=== PATIENT | male | born 1940 | race Caucasian/White ===

== ENCOUNTER → 2017-12-30 | Outpatient (CLI) | payer OTHER ==
[~2017-12-30] VITALS: Ht 177.8 cm; Wt 95.4 kg
[~2017-12-30] MED LIST: AZIT250T9 PO; CETI-101 PO; FLEC100T3 PO; FLUT1BLS3 IH; GABA-531 PO; MONT10TA24 PO; MULT1TAB70 PO; OMEP20TA25 PO; POTA-79 PO; TAMS0.4C32 PO; TYL3 PO; diltiazem PO
[2017-12-30 15:00] VITALS: BP_SYST 169; BP_SYST 175; BP_DIAS 104; BP_DIAS 94
[2017-12-30 15:31] LABS: BASOPHILS % (AUTO) 0.9 % (0.0-5.0); EOSINOPHILS % (AUTO) 2.4 % (0.0-8.0); HEMATOCRIT 39.9 % (42-54); LYMPHOCYTES % (AUTO) 43.1 % (21.0-51.0); MEAN CORPUSCULAR HEMOGLOBIN 34.2 pg (27.0-33.0); MEAN CORPUSCULAR HGB CONC 34.3 g/dL (32.0-36.0); MEAN CORPUSCULAR VOLUME 99.7 fL (79-99); MONOCYTES % (AUTO) 10.1 % (3.0-13.0); NEUTROPHILS % (AUTO) 43.5 % (40.0-77.0); NUCLEATED RED BLOOD CELLS 0.1 % (0.0-0.19); PLATELET COUNT (AUTO) 200 K/uL (130-400); RED CELL DISTRIBUTION WIDTH 12.8 % (11.0-15.5); WHITE BLOOD COUNT (AUTO) 5.7 K/uL (4.8-10.8)
[2017-12-30 15:36] LABS: APPEARANCE,URINE Clear (CLEAR); BILIRUBIN,URINE Negative (NEGATIVE); COLOR,URINE Yellow (YELLOW); GLUCOSE, URINE (UA) Negative (NEGATIVE); KETONES,URINE Negative (NEGATIVE); LEUKOCYTE ESTERASE ,URINE Negative (NEGATIVE); NITRATE,URINE Negative (NEGATIVE); OCCULT BLOOD,URINE Negative (NEGATIVE); PH,URINE 5.5 (5.0-8.0); PROTEIN,URINE Negative (NEGATIVE); UROBILINOGEN,URINE 0.2 mg/dL (0.2-1.0)
[2017-12-30 15:37] LABS: CREATININE 1.5 mg/dL (0.5-1.5)
== END | disposition home or self-care (01) ==
LOC: DAH 10:00 → EDSTATUS 12:30
PROVIDERS: ATTEND Surgery
DX: I48.91 Unspecified atrial fibrillation (principal); R94.31 Abnormal electrocardiogram [ECG] [EKG]; K40.90 Unilateral inguinal hernia, without obstruction or gangrene, not specified as recurrent
CPT/HCPCS: 36415; 80048; 81003; 85025; 93005

== ENCOUNTER → 2018-01-08 | Outpatient (CLI) | payer OTHER ==
[~2018-01-08] VITALS: Ht 177.8 cm; Wt 96.6 kg
[~2018-01-08] MED LIST changes: +REGADENOSON 0.4 MG/5 ML PF SYG IVP SCH
== END | disposition home or self-care (01) ==
LOC: RAH 08:43
PROVIDERS: ATTEND Internal Medicine
DX: I48.91 Unspecified atrial fibrillation (principal); I10 Essential (primary) hypertension; R06.00 Dyspnea, unspecified
CPT/HCPCS: 78452; 93017; 96374; A9500 ×2; J2785

== ENCOUNTER 2018-07-22 08:40 | Day surgery (SDC) | payer OTHER ==
[~2018-07-22] VITALS: Ht 177.8 cm; Wt 95.3 kg
[~2018-07-22 08:40] MED LIST changes: +CERTIRIZINE PO; -CETI-101 PO; +CLON0.1T PO; +DILT90TA2 PO; +FAMO-136 PO; +FURO20TA4 PO; -MONT10TA24 PO; -OMEP20TA25 PO; -REGADENOSON 0.4 MG/5 ML PF SYG IVP SCH; +SODIUM CHLORIDE 0.9% 1000ML 1,000 ML IV ONE; -diltiazem PO
[2018-07-22 11:48] VITALS: BP 165/77
[2018-07-22] MEDS ORDERED: PROPOFOL 10 MG/ML 20ML VIAL IV ONE ×2 (12:02)
[2018-07-22] MEDS ORDERED: GLYCOPYRROLATE 0.2 MG/ML 5 ML VIAL ONE (12:02)
[2018-07-22] MEDS ORDERED: LIDOCAINE HCL 1% 20 ML VIAL ONE (12:02)
[2018-07-22] MEDS ORDERED: ESOM40CA54 PO (12:13)
[2018-07-22] MEDS ORDERED: MONT10TA24 PO (12:13)
[2018-07-22] MEDS ORDERED: FLUT1BLS IH (12:13)
[2018-07-22] MEDS ORDERED: APIX5TAB PO (12:13)
[2018-07-22 12:17] VITALS: BP 147/79
[2018-07-22 12:23] VITALS: BP 153/103
[2018-07-22 12:29] VITALS: BP 146/98
== END 2018-07-22 12:55 | disposition home or self-care (01) ==
LOC: DAH 08:40 → ENDO 08:40
PROVIDERS: ATTEND Internal Medicine
DX: K31.89 Other diseases of stomach and duodenum (principal); K22.8 Other specified diseases of esophagus; I10 Essential (primary) hypertension; K21.9 Gastro-esophageal reflux disease without esophagitis; G25.81 Restless legs syndrome; J21.9 Acute bronchiolitis, unspecified; Z98.890 Other specified postprocedural states; Z79.899 Other long term (current) drug therapy; Z68.30 Body mass index [BMI] 30.0-30.9, adult; Z86.010 Personal history of colon polyps; I48.2 Chronic atrial fibrillation; R05 Cough; Z88.8 Allergy status to other drugs, medicaments and biological substances
CPT/HCPCS: 43239; 88305; 88312; 93005; A4606; J2704 ×2; J3490; J7030

== ENCOUNTER → 2018-09-30 | Outpatient (CLI) | payer OTHER ==
[~2018-09-30] MED LIST changes: +APIX5TAB PO; +ESOM40CA54 PO; +FLUT1BLS IH; +MONT10TA24 PO; -MULT1TAB70 PO; -SODIUM CHLORIDE 0.9% 1000ML 1,000 ML IV ONE; -TYL3 PO
== END | disposition home or self-care (01) ==
LOC: RAH 13:46
PROVIDERS: ATTEND Internal Medicine Cardiovascular Disease
DX: Z13.6 Encounter for screening for cardiovascular disorders (principal)
CPT/HCPCS: 75571

== ENCOUNTER → 2018-10-06 | Outpatient (CLI) | payer OTHER | END | disposition home or self-care (01) | LOC: SHCH 09:37 | PROVIDERS: ATTEND Internal Medicine Cardiovascular Disease | DX: I07.1 Rheumatic tricuspid insufficiency (principal); R06.00 Dyspnea, unspecified | CPT/HCPCS: 93306 ==

== ENCOUNTER → 2018-10-12 | Outpatient (CLI) | payer OTHER ==
[~2018-10-12] VITALS: Ht 177.8 cm; Wt 96.9 kg
[~2018-10-12] MED LIST changes: +ACET-66 PO; +CETI10CA5 PO; +OMEP20TA25 PO; +PRED10TA3 PO
[2018-10-12 09:40] VITALS: BP 121/62
[2018-10-12 09:54] LABS: BASOPHILS % (AUTO) 1.3 % (0.0-5.0); EOSINOPHILS % (AUTO) 3.5 % (0.0-8.0); HEMATOCRIT 37.4 % (42-54); LYMPHOCYTES % (AUTO) 36.1 % (21.0-51.0); MEAN CORPUSCULAR HGB CONC 34.1 g/dL (32.0-36.0); MEAN CORPUSCULAR VOLUME 102.6 fL (79-99); MONOCYTES % (AUTO) 11.7 % (3.0-13.0); NEUTROPHILS % (AUTO) 47.4 % (40.0-77.0); PLATELET COUNT (AUTO) 204 K/uL (130-400); RED BLOOD CELL COUNT(AUTO) 3.64 MIL/uL (4.50-6.20); RED CELL DISTRIBUTION WIDTH 12.3 % (11.0-15.5); WHITE BLOOD COUNT (AUTO) 5.5 K/uL (4.8-10.8)
[2018-10-12 10:06] LABS: CREATININE 1.6 mg/dL (0.5-1.5); INR 1.03 (0.85-1.15); PARTIAL THROMBOPLASTIN TIME 32.4 SEC (26.3-35.5); POTASSIUM 4.2 mmol/L (3.5-5.1); PROTHROMBIN TIME 10.8 SEC (9.6-11.6)
== END ==
LOC: DAH 10:00 → EDSTATUS 10-14 09:00
PROVIDERS: ATTEND Internal Medicine Cardiovascular Disease
DX: Z01.818 Encounter for other preprocedural examination (principal); I49.5 Sick sinus syndrome; Z79.01 Long term (current) use of anticoagulants
CPT/HCPCS: 36415; 80048; 85025; 85610; 85730; 93005

== ENCOUNTER 2018-10-21 06:50 | Observation (INO) | payer OTHER ==
[2018-10-19 10:38] VITALS: BP 107/70
[2018-10-19 10:42] LABS: EOSINOPHILS % (AUTO) 2.2 % (0.0-8.0); HEMATOCRIT 42.5 % (42-54); LYMPHOCYTES % (AUTO) 38.4 % (21.0-51.0); MEAN CORPUSCULAR HEMOGLOBIN 34.7 pg (27.0-33.0); MEAN CORPUSCULAR HGB CONC 34.1 g/dL (32.0-36.0); MEAN CORPUSCULAR VOLUME 101.5 fL (79-99); MONOCYTES % (AUTO) 11.7 % (3.0-13.0); NEUTROPHILS % (AUTO) 46.7 % (40.0-77.0); NUCLEATED RED BLOOD CELLS 0.2 % (0.0-0.19); PLATELET COUNT (AUTO) 214 K/uL (130-400); RED BLOOD CELL COUNT(AUTO) 4.19 MIL/uL (4.50-6.20); RED CELL DISTRIBUTION WIDTH 12.1 % (11.0-15.5); WHITE BLOOD COUNT (AUTO) 6.8 K/uL (4.8-10.8)
[2018-10-19 10:51] LABS: CREATININE 1.6 mg/dL (0.5-1.5); POTASSIUM 4.5 mmol/L (3.5-5.1)
[2018-10-19 10:53] LABS: INR 1.04 (0.85-1.15); PARTIAL THROMBOPLASTIN TIME 33.1 SEC (26.3-35.5); PROTHROMBIN TIME 10.9 SEC (9.6-11.6)
--- NOTE | 2018-10-20 14:35 | NUR ---
BMP faxed bmp (creatinine 1.6) & cbc to [facility] to proceed with procedure per Dr Garcia/Yeny
[~2018-10-21] VITALS: Ht 177.8 cm; Wt 95.5 kg
[2018-10-21] VITALS (10 sets, daily range): BP systolic 122–162; BP diastolic 65–94
[~2018-10-21 06:50] MED LIST changes: -CERTIRIZINE PO; -FLUT1BLS IH; -FLUT1BLS3 IH; +NASAL SPRAY NASAL
--- NOTE | 2018-10-21 07:15 | NUR ---
RECEIVED PATIENT IN GOOD SPIRITS,ACCOMPANIED BY SPOUSE ,NO COMPLAINTS OF DISCOMFORT ,ORIENTED TO ROOM AND MADE COMFORTABLE,,CALL CALDWELL IN REACH,HAS RT LOWER BRACE AT BEDSIDE ,STATES DOES NOT USE UNLESS HE REMEMBERS ,,STATES ABLE TO WALK WITH NO PROBLEM,HAS SCREWS TO RT ANKLE ,AND METAL PLATE ,STATES APPROXIMATELY 28 YEARS AGO
[2018-10-21] MEDS ORDERED: SODIUM CHLORIDE 0.9% 1000ML 1,000 ML IV SCH (08:00)
[2018-10-21] MEDS ORDERED: BUPIVACAINE/PF 0.25% 30ML VIAL IJ ONE (08:50)
[2018-10-21] MEDS ORDERED: CEFAZOLIN SODIUM 1 GM VIAL ONE (08:50)
[2018-10-21] MEDS ORDERED: LIDOCAINE HCL 1% MDV 50ML VIAL ONE (08:50)
--- NOTE | 2018-10-21 09:05 | NUR ---
TO CLINICAL MENTAL HEALTH COUNSELOR VIA STRETCHER ACCOMPANIED BY FRED LYMAN
[2018-10-21] MEDS ORDERED: MEPERIDINE-PF 25 MG/ML SYG ONE (09:18)
[2018-10-21] MEDS ORDERED: MIDAZOLAM HCL 1 MG/ML 2ML VIAL ONE (09:18)
[2018-10-21] MEDS ORDERED: PREDNISONE 10 MG TABLET PO PRN (10:30)
[2018-10-21] MEDS ORDERED: ACETAMINOPHEN 325 MG TAB PO PRN (10:30)
[2018-10-21] MEDS ORDERED: ACETAMINOPHEN-CODEINE 300/30MG TAB PO PRN ×2 (10:30)
[2018-10-21] MEDS ORDERED: AZITHROMYCIN 250 MG TABLET PO SCH (10:30)
--- NOTE | 2018-10-21 10:58 | NUR ---
ARRIVAL TO ROOM 227 PT IS AAOX4 DENIES CP DENIES SOB DENIES NV NO COMPLAINTS LEFT UPPER CHEST DRSSING IS CLEAN DRY AND INTACT. LEFT ARM SLING IS IN PLACE. CALL LIGHT WITHIN REACH.
[2018-10-21] MEDS: METOPROLOL TARTRATE 25 MG TAB PO SCH ×2 (11:13→22:01)
[2018-10-21] MEDS: SODIUM CHLORIDE 45 ML SPRY NS SCH (11:38)
[2018-10-21] MEDS ORDERED: ACETAMINOPHEN EXTRA STRENGTH 500 MG TABLET PO PRN (11:45)
--- NOTE | 2018-10-21 17:40 | NUR ---
STATUS SITTING UPRIGHT IN BED, NO COMPLAINTS DENIES CP DENIES SOB DENIES NV. LEFT ARM SLING IS IN PLACE.
[2018-10-21] MEDS ORDERED: TAMSULOSIN HCL 0.4 MG CAP.ER.24H PO SCH (21:00)
[2018-10-21] MEDS ORDERED: NON-FORMULARY MEDICATION 1 EACH (Omeprazole 20 MG) PO SCH (21:00)
[2018-10-21] MEDS ORDERED: MONTELUKAST SODIUM 10 MG TAB PO SCH (21:00)
[2018-10-21] MEDS ORDERED: FLECAINIDE ACETATE 100 MG TABLET PO SCH (21:00)
[2018-10-21] MEDS ORDERED: POTASSIUM CHLORIDE 20 MEQ ERTAB PO SCH (21:00)
[2018-10-21] MEDS: APIXABAN 5 MG TABLET PO SCH (22:00)
[2018-10-21] MEDS: FAMOTIDINE 20MG TAB 20 MG TAB PO SCH (22:00)
[2018-10-21] MEDS: GABAPENTIN 300 MG CAPSULE PO SCH (22:01)
[2018-10-21] MEDS: CLONIDINE HCL 0.1 MG TABLET PO SCH (22:02)
[2018-10-21] MEDS: DILTIAZEM HCL 60 MG TABLET PO SCH (22:03)
[2018-10-22 03:00] VITALS: BP 134/82
[2018-10-22] MEDS: SODIUM CHLORIDE 45 ML SPRY NS SCH (07:21)
[2018-10-22] MEDS: GABAPENTIN 300 MG CAPSULE PO SCH (07:22)
[2018-10-22] MEDS: METOPROLOL TARTRATE 25 MG TAB PO SCH (07:22)
[2018-10-22] MEDS: APIXABAN 5 MG TABLET PO SCH (07:23)
[2018-10-22] MEDS: DILTIAZEM HCL 60 MG TABLET PO SCH (07:23)
[2018-10-22] MEDS: CLONIDINE HCL 0.1 MG TABLET PO SCH (07:23)
[2018-10-22] MEDS: FAMOTIDINE 20MG TAB 20 MG TAB PO SCH (07:23)
--- NOTE | 2018-10-22 08:00 | NUR ---
STATUS AAOX4. SITTING UPRIGHT IN BED, LEFT UPPER CHEST DRESSING INTACT. NO COMPLAINTS DENIES CP DENIES SOB DENIES NV. CALL LIGHT WITHIN REACH.
[2018-10-22 08:19] VITALS: BP 145/90
[2018-10-22] MEDS ORDERED: CETIRIZINE HCL 5 MG TABLET PO SCH (09:00)
[2018-10-22] MEDS ORDERED: NON-FORMULARY MEDICATION 1 EACH (Esomeprazole Magnesium 40 MG) PO SCH (09:00)
--- NOTE | 2018-10-22 09:00 | NUR ---
ROUNDS DR LUKE SALAZAR ROUNDED OK TO DC HOME
--- NOTE | 2018-10-22 10:16 | NUR ---
DC TO HOME PT AND FAMILY VERBALIZE DC INSTRUCTIONS UNDERSTANDING, AGREE TO FOLLOW UP WITH MDs ORDERED. AGREE TO TAKE MEDS ORDERED. ALL QUESTIONS ANSWERED, PIV REMOVED CATH TIP INTACT, TELE PACK REMOVED. DOWN VIA WC WITH FAMILY AND NURSE AIDE TO VEHICLE.
[2018-10-23] MEDS ORDERED: FUROSEMIDE 20 MG TABLET PO SCH (09:00)
== END 2018-10-22 10:24 | disposition home or self-care (01) ==
LOC: DAH 06:50 → DAHIP 06:51 → DAH 06:51 → 2DH 11:21
PROVIDERS: ADMIT Internal Medicine; ATTEND Internal Medicine
DX: I48.0 Paroxysmal atrial fibrillation (principal); K21.9 Gastro-esophageal reflux disease without esophagitis; N40.1 Benign prostatic hyperplasia with lower urinary tract symptoms; N13.8 Other obstructive and reflux uropathy; G25.81 Restless legs syndrome; I11.0 Hypertensive heart disease with heart failure; I50.32 Chronic diastolic (congestive) heart failure; D68.69 Other thrombophilia; E78.5 Hyperlipidemia, unspecified; E88.81 Metabolic syndrome and other insulin resistance; G62.9 Polyneuropathy, unspecified; G89.29 Other chronic pain; G95.9 Disease of spinal cord, unspecified; I42.0 Dilated cardiomyopathy; J44.9 Chronic obstructive pulmonary disease, unspecified; M19.90 Unspecified osteoarthritis, unspecified site; M51.9 Unspecified thoracic, thoracolumbar and lumbosacral intervertebral disc disorder; Z79.01 Long term (current) use of anticoagulants; Z87.442 Personal history of urinary calculi; Z95.0 Presence of cardiac pacemaker; Z82.49 Family history of ischemic heart disease and other diseases of the circulatory system
CPT/HCPCS: 33208; 36415; 71045; 80048; 85025; 85610; 85730; A4606; C1785; C1898 ×2; G0378 ×28; J0690; J2175; J2250; J3490 ×2; J7030; 99156; 99157

== ENCOUNTER → 2019-05-31 | Outpatient (CLI) | payer OTHER ==
[~2019-05-31] VITALS: Ht 177.8 cm; Wt 90.7 kg
[2019-05-31] MEDS: REGADENOSON 0.4 MG/5 ML PF SYG IVP SCH (13:34)
== END | disposition home or self-care (01) ==
LOC: SHCH 08:46
PROVIDERS: ATTEND Internal Medicine Cardiovascular Disease
DX: I48.0 Paroxysmal atrial fibrillation (principal)
CPT/HCPCS: 78452; 93017; 96374; A9500 ×2; J2785

== ENCOUNTER → 2021-05-22 | Outpatient (CLI) | payer OTHER ==
[~2021-05-22] MED LIST changes: -MONT10TA24 PO; +MONT10TA32 PO
== END | disposition home or self-care (01) ==
LOC: RAH 07:43
PROVIDERS: ATTEND Internal Medicine
DX: N20.0 Calculus of kidney (principal); K57.30 Diverticulosis of large intestine without perforation or abscess without bleeding
CPT/HCPCS: 74176

== ENCOUNTER → 2022-01-04 | Outpatient (CLI) | payer OTHER ==
[~2022-01-04] MED LIST changes: +MONT-39 PO; -MONT10TA32 PO; +OMEP20TA20 PO; -OMEP20TA25 PO
== END | disposition home or self-care (01) ==
LOC: SHCH 10:08
PROVIDERS: ATTEND Internal Medicine Cardiovascular Disease
DX: I08.1 Rheumatic disorders of both mitral and tricuspid valves (principal)
CPT/HCPCS: 93306

== ENCOUNTER → 2022-01-07 | Outpatient (CLI) | payer OTHER ==
[2022-01-07] MEDS: REGADENOSON 0.4 MG/5 ML PF SYG IVP SCH (11:53)
== END | disposition home or self-care (01) ==
LOC: SHCH 07:48
PROVIDERS: ATTEND Internal Medicine Cardiovascular Disease
DX: I10 Essential (primary) hypertension (principal); R00.2 Palpitations; Z79.899 Other long term (current) drug therapy
CPT/HCPCS: 78452; 93017; 96374; A9500 ×2; J2785

== ENCOUNTER 2022-11-15 18:22 | Inpatient (IN) | payer OTHER ==
[~2022-11-15] VITALS: Ht 177.8 cm; Wt 88.5 kg
[~2022-11-15 18:22] MED LIST changes: +ACET-2743 PO; -ACET-66 PO; +ALBU2.5V2 IH; +ALBU90AE IH; -AZIT250T9 PO; -CETI10CA5 PO; +CETI10TA57 PO; -CLON0.1T PO; -DILT90TA2 PO; -FAMO-136 PO; +FAMO20TA8 PO; -FLEC100T3 PO; +FLUT1BLS12 IH; -FURO20TA4 PO; -GABA-531 PO; +GABA300T25 PO; +METO100T14 PO; -NASAL SPRAY NASAL; +NITR0.4T50 SL; -OMEP20TA20 PO; +POTA-202 PO; -POTA-79 PO; -PRED10TA3 PO; +ROSU5TAB12 PO; +TAMS-1 PO; -TAMS0.4C32 PO; +VERA240T95 PO
[2022-11-15 21:39] LABS: APPEARANCE,URINE CLOUDY (CLEAR); BILIRUBIN,URINE NEGATIVE (NEGATIVE); COLOR,URINE LIGHT-YELLOW (YELLOW); GLUCOSE, URINE (UA) NEGATIVE (NEGATIVE); KETONES,URINE NEGATIVE (NEGATIVE); LEUKOCYTE ESTERASE ,URINE 500 Leu/uL (NEGATIVE); NITRATE,URINE NEGATIVE (NEGATIVE); OCCULT BLOOD,URINE SMALL (NEGATIVE); PROTEIN,URINE 10 mg/dL (NEGATIVE); UROBILINOGEN,URINE 0.2 mg/dL (0.2-1.0)
[2022-11-15 21:45] LABS: BACTERIA,URINE FEW /HPF (None Seen); SQUAMOUS EPITHELIAL CELL,UR RARE /HPF (0-2); WBC,URINE 51-100 /HPF (0-1); YEAST,URINE BUDDING FEW /HPF (None Seen)
[2022-11-15 21:47] LABS: BASOPHILS % (AUTO) 0.5 % (0.0-5.0); EOSINOPHILS % (AUTO) 0.9 % (0.0-8.0); HEMATOCRIT 24.1 % (42-54); LYMPHOCYTES % (AUTO) 28.2 % (21.0-51.0); MEAN CORPUSCULAR HEMOGLOBIN 30.4 pg (27.0-33.0); MEAN CORPUSCULAR HGB CONC 32.4 g/dL (32.0-36.0); MEAN CORPUSCULAR VOLUME 93.8 fL (79-99); MONOCYTES % (AUTO) 12.7 % (3.0-13.0); NEUTROPHILS % (AUTO) 57.3 % (40.0-77.0); PLATELET COUNT (AUTO) 238 K/uL (130-400); RED BLOOD CELL COUNT(AUTO) 2.57 MIL/uL (4.50-6.20); RED CELL DISTRIBUTION WIDTH 15.9 % (11.0-15.5); WHITE BLOOD COUNT (AUTO) 8.1 K/uL (4.8-10.8)
[2022-11-15 21:54] LABS: CREATININE 1.4 mg/dL (0.5-1.5); POTASSIUM 3.3 mmol/L (3.5-5.1)
[2022-11-15 22:01] LABS: ALBUMIN 2.3 g/dL (3.5-5.0); TOTAL PROTEIN, SERUM 6.5 g/dL (6.0-8.3)
[2022-11-15 22:26] LABS: B-TYPE NATRIURETIC PEPTIDE 520 pg/mL (0-100)
[2022-11-15] MEDS ORDERED: CEFTRIAXONE 2GM VIAL IVP ONE (22:30)
[2022-11-15] MEDS ORDERED: ACET-2079 PO (22:43)
[2022-11-15] MEDS ORDERED: AMIO200T68 PO (22:43)
[2022-11-15] MEDS ORDERED: GABA300T25 PO (22:43)
[2022-11-15] MEDS ORDERED: CYAN10007 IJ (22:44)
[2022-11-15] MEDS ORDERED: FLEC100T3 PO (22:45)
[2022-11-15] MEDS ORDERED: ESCI10TA PO (22:46)
[2022-11-15] MEDS ORDERED: VERE240SR PO (22:52)
[2022-11-15] MEDS ORDERED: MAG/ALUM/SIMETH 30 ML UDCUP PO PRN (23:00)
[2022-11-15] MEDS ORDERED: ACETAMINOPHEN 325 MG TAB PO PRN ×2 (23:00)
[2022-11-15] MEDS ORDERED: LACTULOSE 20 GM/30 ML UDCUP PO PRN (23:00)
[2022-11-15] MEDS ORDERED: POTASSIUM CHLORIDE 20MEQ/100ML 100 ML IV PRN ×2 (23:00)
[2022-11-15] MEDS ORDERED: POTASSIUM BICARB/CIT AC 25 MEQ TABLET.EFF PO ONE (23:00)
[2022-11-15] MEDS: CEFTRIAXONE 1G VIAL IV SCH (23:00)
[2022-11-15] MEDS ORDERED: NITROGLYCERIN 0.4 MG SL TAB SL PRN (23:00)
[2022-11-15] MEDS ORDERED: POTASSIUM CHLORIDE 10% ELIXIR 20 MEQ/15 ML UDCUP PO PRN (23:00)
[2022-11-15] MEDS ORDERED: GUAIFENESIN-DM 200/20 MG 10 ML PO PRN (23:00)
[2022-11-15] MEDS ORDERED: ONDANSETRON 4MG INJ IV PRN (23:00)
[2022-11-15] MEDS ORDERED: MAGNESIUM 2GM PREMIX 50ML 50 ML IV PRN (23:00)
[2022-11-15] MEDS ORDERED: HYDRALAZINE 20MG/ML VIAL IV PRN (23:30)
[2022-11-15] MEDS: 0.9%NACL 1000ML 1,000 ML IV SCH (23:49)
[2022-11-15] MEDS: PANTOPRAZOLE 40 MG/VIAL IVP SCH (23:49)
[2022-11-16 01:30] VITALS: BP 164/84
[2022-11-16] MEDS: ACETAMINOPHEN WITH CODEINE 1 TAB TAB PO PRN ×2 (02:46→07:03)
[2022-11-16 04:00] VITALS: BP 136/86
[2022-11-16 05:30] LABS: HEMATOCRIT 24.1 % (42-54); MEAN CORPUSCULAR VOLUME 93.8 fL (79-99); RED BLOOD CELL COUNT(AUTO) 2.57 MIL/uL (4.50-6.20); RED CELL DISTRIBUTION WIDTH 16.1 % (11.0-15.5); WHITE BLOOD COUNT (AUTO) 8.4 K/uL (4.8-10.8)
[2022-11-16 06:13] LABS: CREATININE 1.3 mg/dL (0.5-1.5); MAGNESIUM 1.6 mg/dL (1.80-2.40); POTASSIUM 3.2 mmol/L (3.5-5.1)
[2022-11-16 07:15] VITALS: BP 144/81
[2022-11-16] MEDS: ADVAIR IH SCH ×2 (09:00→21:00)
[2022-11-16] MEDS ORDERED: KCL 20 MEQ ERTAB PO SCH (09:00)
[2022-11-16] MEDS ORDERED: FAMOTIDINE 20MG TAB PO SCH (09:00)
[2022-11-16] MEDS: ALBUTEROL 0.083% 2.5 MG/3 ML INH IH PRN (09:13)
[2022-11-16] MEDS: PANTOPRAZOLE 40 MG/VIAL IVP SCH (10:00)
[2022-11-16] MEDS: FLECAINIDE ACETATE 100 MG TABLET PO SCH (10:01)
[2022-11-16] MEDS: CETIRIZINE HCL 5 MG TABLET PO SCH (10:01)
[2022-11-16] MEDS: CITALOPRAM 20 MG TABLET PO SCH (10:01)
[2022-11-16] MEDS: AMIODARONE 200 MG TABLET PO SCH ×2 (10:01→20:50)
[2022-11-16] MEDS: VERAPAMIL HCL 240 MG SRTAB PO SCH (10:01)
[2022-11-16] MEDS: TAMSULOSIN HCL 0.4 MG CAP.ER.24H PO SCH (10:01)
[2022-11-16] MEDS: METOPROLOL TARTRATE 50 MG TAB PO SCH ×2 (10:01→20:50)
[2022-11-16] MEDS: KCL 20 MEQ ERTAB PO SCH ×2 (10:02→20:50)
[2022-11-16] MEDS: FOLIC ACID 1 MG TABLET PO SCH (10:03)
[2022-11-16] MEDS: FERROUS SULFATE 325 MG TABLET.DR PO SCH (10:03)
[2022-11-16 11:15] VITALS: BP 116/63
[2022-11-16] MEDS: KCL 20 MEQ ERTAB PO PRN (13:44)
[2022-11-16 15:15] VITALS: BP 123/59
[2022-11-16] MEDS ORDERED: VANCOMYCIN PROTOCOL PER PHARMACY IV SCH (15:30)
[2022-11-16] MEDS ORDERED: COMPOUND IV REFRIGERATED 1 EACH IVSOLN MISC PRN (16:00)
[2022-11-16] MEDS: MONTELUKAST SODIUM 10 MG TAB PO SCH (17:06)
[2022-11-16] MEDS: VANCOMYCIN 1.25 GM/250 ML BAG 250 ML IV SCH (17:20)
[2022-11-16 20:00] VITALS: BP 134/77
[2022-11-16] MEDS: GABAPENTIN 300 MG CAPSULE PO SCH (20:50)
[2022-11-16] MEDS: CEFTRIAXONE 1G VIAL IV SCH (23:53)
[2022-11-17] VITALS (7 sets, daily range): BP systolic 145–176; BP diastolic 65–102
[2022-11-17 06:03] LABS: HEMATOCRIT 24.5 % (42-54); MEAN CORPUSCULAR HEMOGLOBIN 29.9 pg (27.0-33.0); MEAN CORPUSCULAR HGB CONC 31.8 g/dL (32.0-36.0); MEAN CORPUSCULAR VOLUME 93.9 fL (79-99); RED BLOOD CELL COUNT(AUTO) 2.61 MIL/uL (4.50-6.20); RED CELL DISTRIBUTION WIDTH 15.8 % (11.0-15.5); WHITE BLOOD COUNT (AUTO) 9.1 K/uL (4.8-10.8)
[2022-11-17 06:21] LABS: CREATININE 1.1 mg/dL (0.5-1.5); POTASSIUM 3.3 mmol/L (3.5-5.1)
[2022-11-17] MEDS: KCL 20 MEQ ERTAB PO PRN ×3 (06:50→18:20)
[2022-11-17] MEDS: ALBUTEROL 0.083% 2.5 MG/3 ML INH IH PRN (08:01)
[2022-11-17] MEDS: KCL 20 MEQ ERTAB PO SCH ×2 (08:05→21:01)
[2022-11-17] MEDS: TAMSULOSIN HCL 0.4 MG CAP.ER.24H PO SCH (08:05)
[2022-11-17] MEDS: METOPROLOL TARTRATE 50 MG TAB PO SCH ×2 (08:05→21:01)
[2022-11-17] MEDS: CETIRIZINE HCL 5 MG TABLET PO SCH (08:05)
[2022-11-17] MEDS: FLECAINIDE ACETATE 100 MG TABLET PO SCH (08:05)
[2022-11-17] MEDS: AMIODARONE 200 MG TABLET PO SCH ×2 (08:05→21:01)
[2022-11-17] MEDS: VERAPAMIL HCL 240 MG SRTAB PO SCH (08:05)
[2022-11-17] MEDS: CITALOPRAM 20 MG TABLET PO SCH (08:05)
[2022-11-17] MEDS: FOLIC ACID 1 MG TABLET PO SCH (08:05)
[2022-11-17] MEDS: FERROUS SULFATE 325 MG TABLET.DR PO SCH (08:05)
[2022-11-17] MEDS: 0.9%NACL 1000ML 1,000 ML IV SCH ×2 (08:06→21:42)
[2022-11-17] MEDS: PANTOPRAZOLE 40 MG/VIAL IVP SCH (08:06)
[2022-11-17] MEDS: ADVAIR IH SCH ×2 (08:06→21:00)
[2022-11-17] MEDS: ACETAMINOPHEN WITH CODEINE 1 TAB TAB PO PRN (14:17)
[2022-11-17] MEDS: MONTELUKAST SODIUM 10 MG TAB PO SCH (17:04)
[2022-11-17] MEDS: VANCOMYCIN 1.25 GM/250 ML BAG 250 ML IV SCH (17:05)
[2022-11-17] MEDS: GABAPENTIN 300 MG CAPSULE PO SCH (21:00)
[2022-11-17] MEDS: CEFTRIAXONE 1G VIAL IV SCH (22:29)
[2022-11-18 03:39] VITALS: BP 162/69
[2022-11-18] MEDS: ACETAMINOPHEN WITH CODEINE 1 TAB TAB PO PRN (06:56)
[2022-11-18 07:28] VITALS: BP 158/94
[2022-11-18] MEDS: ALBUTEROL 0.083% 2.5 MG/3 ML INH IH PRN (07:30)
[2022-11-18 08:24] LABS: HEMATOCRIT 24.3 % (42-54); MEAN CORPUSCULAR HEMOGLOBIN 29.9 pg (27.0-33.0); MEAN CORPUSCULAR HGB CONC 32.1 g/dL (32.0-36.0); MEAN CORPUSCULAR VOLUME 93.1 fL (79-99); RED BLOOD CELL COUNT(AUTO) 2.61 MIL/uL (4.50-6.20); RED CELL DISTRIBUTION WIDTH 15.5 % (11.0-15.5); WHITE BLOOD COUNT (AUTO) 9.5 K/uL (4.8-10.8)
[2022-11-18] MEDS ORDERED: PANT40TA54 PO (08:26)
[2022-11-18] MEDS ORDERED: CEFD300C3 PO (08:28)
[2022-11-18] MEDS ORDERED: HYDRALAZINE 25MG TABLET PO PRN (08:30)
[2022-11-18] MEDS ORDERED: MAGN400T53 PO (08:31)
[2022-11-18] MEDS ORDERED: POTA-202 PO (08:31)
[2022-11-18 08:36] LABS: CREATININE 1.1 mg/dL (0.5-1.5); POTASSIUM 3.3 mmol/L (3.5-5.1)
[2022-11-18] MEDS: ADVAIR IH SCH ×2 (09:00→19:54)
[2022-11-18] MEDS ORDERED: ATORVASTATIN 10 MG TABLET PO SCH (09:00)
[2022-11-18] MEDS: FLECAINIDE ACETATE 100 MG TABLET PO SCH (09:21)
[2022-11-18] MEDS: CITALOPRAM 20 MG TABLET PO SCH (09:21)
[2022-11-18] MEDS: FERROUS SULFATE 325 MG TABLET.DR PO SCH (09:21)
[2022-11-18] MEDS: PANTOPRAZOLE 40 MG TAB DR PO SCH ×2 (09:21→19:51)
[2022-11-18] MEDS: METOPROLOL TARTRATE 50 MG TAB PO SCH ×2 (09:21→19:52)
[2022-11-18] MEDS: FOLIC ACID 1 MG TABLET PO SCH (09:21)
[2022-11-18] MEDS: AMIODARONE 200 MG TABLET PO SCH ×2 (09:21→19:51)
[2022-11-18] MEDS: CETIRIZINE HCL 5 MG TABLET PO SCH (09:21)
[2022-11-18] MEDS: TAMSULOSIN HCL 0.4 MG CAP.ER.24H PO SCH (09:21)
[2022-11-18] MEDS: MAGNESIUM OXIDE 400 MG TABLET PO SCH (09:21)
[2022-11-18] MEDS: VERAPAMIL HCL 240 MG SRTAB PO SCH (09:21)
[2022-11-18] MEDS: KCL 20 MEQ ERTAB PO SCH ×2 (09:22→19:52)
[2022-11-18 10:50] VITALS: BP 116/65
[2022-11-18] MEDS: KCL 20 MEQ ERTAB PO PRN ×2 (11:49→13:40)
[2022-11-18 15:25] VITALS: BP 143/74
[2022-11-18] MEDS: ACETAMINOPHEN WITH CODEINE 1 TAB TAB PO SCH ×2 (17:37→19:54)
[2022-11-18] MEDS: MONTELUKAST SODIUM 10 MG TAB PO SCH (17:37)
[2022-11-18] MEDS: GABAPENTIN 300 MG CAPSULE PO SCH (19:52)
[2022-11-18 20:24] VITALS: BP 142/71
[2022-11-18] MEDS: CEFTRIAXONE 1G VIAL IV SCH (22:11)
[2022-11-18 23:49] VITALS: BP 155/77
[2022-11-19 04:31] VITALS: BP 164/68
[2022-11-19] MEDS: ACETAMINOPHEN WITH CODEINE 1 TAB TAB PO SCH ×2 (05:52→12:06)
[2022-11-19 06:05] LABS: HEMATOCRIT 22.9 % (42-54); MEAN CORPUSCULAR HEMOGLOBIN 29.7 pg (27.0-33.0); MEAN CORPUSCULAR HGB CONC 32.3 g/dL (32.0-36.0); RED BLOOD CELL COUNT(AUTO) 2.49 MIL/uL (4.50-6.20); RED CELL DISTRIBUTION WIDTH 15.6 % (11.0-15.5); WHITE BLOOD COUNT (AUTO) 7.8 K/uL (4.8-10.8)
[2022-11-19 06:22] LABS: MAGNESIUM 2.2 mg/dL (1.80-2.40)
[2022-11-19] MEDS: ALBUTEROL 0.083% 2.5 MG/3 ML INH IH PRN (06:44)
[2022-11-19 08:00] VITALS: BP 155/72
[2022-11-19] MEDS: ADVAIR IH SCH (09:00)
[2022-11-19] MEDS: CETIRIZINE HCL 5 MG TABLET PO SCH (09:24)
[2022-11-19] MEDS: TAMSULOSIN HCL 0.4 MG CAP.ER.24H PO SCH (09:24)
[2022-11-19] MEDS: VERAPAMIL HCL 240 MG SRTAB PO SCH (09:24)
[2022-11-19] MEDS: MAGNESIUM OXIDE 400 MG TABLET PO SCH (09:24)
[2022-11-19] MEDS: METOPROLOL TARTRATE 50 MG TAB PO SCH (09:24)
[2022-11-19] MEDS: FERROUS SULFATE 325 MG TABLET.DR PO SCH (09:25)
[2022-11-19] MEDS: FLECAINIDE ACETATE 100 MG TABLET PO SCH (09:25)
[2022-11-19] MEDS: PANTOPRAZOLE 40 MG TAB DR PO SCH (09:25)
[2022-11-19] MEDS: CITALOPRAM 20 MG TABLET PO SCH (09:25)
[2022-11-19] MEDS: AMIODARONE 200 MG TABLET PO SCH (09:25)
[2022-11-19] MEDS: FOLIC ACID 1 MG TABLET PO SCH (09:25)
[2022-11-19] MEDS: KCL 20 MEQ ERTAB PO SCH (09:25)
[2022-11-19 11:18] VITALS: BP 137/69
[2022-11-19] MEDS ORDERED: ACET-2079 PO (13:42)
[2022-11-19] MEDS ORDERED: FERR324T4 PO (13:46)
[2022-11-19] MEDS ORDERED: FOLI1 PO (13:48)
[2022-11-19] MEDS ORDERED: TAMS-1 PO (13:50)
[2022-11-19 15:48] VITALS: BP 144/65
[2022-12-15] MEDS ORDERED: CYANOCOBALAMIN (VITAMIN B-12) 1000 MCG/ML 1ML VIAL IM SCH (09:00)
== END 2022-11-19 17:58 | DRG 563 ==
LOC: EDH 18:22 → EDHIP 22:58 → 3DH 11-16 01:45
PROVIDERS: ADMIT Internal Medicine; ATTEND Internal Medicine
DX: S93.402A Sprain of unspecified ligament of left ankle, initial encounter (principal); N39.0 Urinary tract infection, site not specified; I13.0 Hypertensive heart and chronic kidney disease with heart failure and stage 1 through stage 4 chronic kidney disease, or unspecified chronic kidney disease; I42.0 Dilated cardiomyopathy; I50.32 Chronic diastolic (congestive) heart failure; W01.0XXA Fall on same level from slipping, tripping and stumbling without subsequent striking against object, initial encounter; E87.6 Hypokalemia; E86.0 Dehydration; B96.20 Unspecified Escherichia coli [E. coli] as the cause of diseases classified elsewhere; G89.29 Other chronic pain; I25.119 Atherosclerotic heart disease of native coronary artery with unspecified angina pectoris; I49.5 Sick sinus syndrome; N40.1 Benign prostatic hyperplasia with lower urinary tract symptoms; Z66 Do not resuscitate; M48.061 Spinal stenosis, lumbar region without neurogenic claudication; N18.32 Chronic kidney disease, stage 3b; Z74.01 Bed confinement status; Z79.01 Long term (current) use of anticoagulants; Z82.49 Family history of ischemic heart disease and other diseases of the circulatory system; Z86.73 Personal history of transient ischemic attack (TIA), and cerebral infarction without residual deficits; Z87.442 Personal history of urinary calculi; Z95.0 Presence of cardiac pacemaker; Y93.89 Activity, other specified; Y92.89 Other specified places as the place of occurrence of the external cause; Y99.8 Other external cause status
CPT/HCPCS: 36415; 73562; 73600; 80048; 80053; 80202; 81001; 82607; 82746; 83735; 83880; 84484; 85025; 85027; 87040; 87077; 87088; 87186; 93005; 94640; 97039; C9113; G0378; J0360; J0696; J3475; J7030

== ENCOUNTER → 2022-12-31 | Outpatient (CLI) | payer OTHER ==
[~2022-12-31] MED LIST changes: +ACET-2079 PO; -ACET-2743 PO; +AMIO200T68 PO; -APIX5TAB PO; +CEFD300C3 PO; +CYAN10007 IJ; +ESCI10TA PO; -ESOM40CA54 PO; +FERR324T4 PO; +FLEC100T3 PO; +FOLI1 PO; +MAGN400T53 PO; +PANT40TA54 PO; -VERA240T95 PO; +VERE240SR PO
[2022-12-31 16:23] LABS: BASOPHILS % (AUTO) 0.1 % (0.0-5.0); HEMATOCRIT 25.5 % (42-54); LYMPHOCYTES % (AUTO) 11.8 % (21.0-51.0); MEAN CORPUSCULAR HEMOGLOBIN 29.6 pg (27.0-33.0); MEAN CORPUSCULAR VOLUME 95.5 fL (79-99); MONOCYTES % (AUTO) 7.9 % (3.0-13.0); NEUTROPHILS % (AUTO) 79.1 % (40.0-77.0); PLATELET COUNT (AUTO) 218 K/uL (130-400); RED BLOOD CELL COUNT(AUTO) 2.67 MIL/uL (4.50-6.20); WHITE BLOOD COUNT (AUTO) 10.1 K/uL (4.8-10.8)
[2022-12-31 16:43] LABS: ALBUMIN 2.7 g/dL (3.5-5.0); CREATININE 1.2 mg/dL (0.5-1.5); MAGNESIUM 1.7 mg/dL (1.80-2.40); POTASSIUM 4.4 mmol/L (3.5-5.1); THYROID STIMULATING HORMONE 6.75 uIU/mL (0.36-3.74)
== END | disposition home or self-care (01) ==
LOC: LAB 14:13
PROVIDERS: ATTEND Internal Medicine Cardiovascular Disease
DX: I48.0 Paroxysmal atrial fibrillation (principal)
CPT/HCPCS: 36415; 80053; 83735; 83880; 84439; 84443; 85025

== ENCOUNTER → 2023-04-04 | Outpatient (CLI) | payer OTHER ==
[2023-04-04 12:25] LABS: BASOPHILS # (AUTO) 0.05 K/uL (0.00-0.20); BASOPHILS % (AUTO) 0.9 % (0.0-5.0); EOSINOPHILS % (AUTO) 3.8 % (0.0-8.0); IMMATURE GRANULOCYTE ABSOLUTE 0.01 K/uL (0-1); LYMPHOCYTES # (AUTO) 2.3 K/uL (1.0-4.8); LYMPHOCYTES % (AUTO) 42.9 % (21.0-51.0); MEAN CORPUSCULAR HEMOGLOBIN 28.8 pg (27.0-33.0); MEAN CORPUSCULAR VOLUME 93.1 fL (79-99); MONOCYTES # (AUTO) 0.6 K/uL (0.1-1.0); MONOCYTES % (AUTO) 11.1 % (3.0-13.0); NEUTROPHILS # (AUTO) 2.2 K/uL (1.8-7.7); NEUTROPHILS % (AUTO) 41.1 % (40.0-77.0); PLATELET COUNT (AUTO) 233 K/uL (130-400); RED BLOOD CELL COUNT(AUTO) 3.33 MIL/uL (4.50-6.20); RED CELL DISTRIBUTION WIDTH 18.3 % (11.0-15.5); WHITE BLOOD COUNT (AUTO) 5.3 K/uL (4.8-10.8)
== END | disposition home or self-care (01) ==
LOC: LAB 10:50
PROVIDERS: ATTEND Physician Assistant
DX: I48.0 Paroxysmal atrial fibrillation (principal)
CPT/HCPCS: 36415; 85025

== ENCOUNTER → 2023-07-04 | Outpatient (CLI) | payer OTHER | END | disposition home or self-care (01) | LOC: RAH 13:10 | PROVIDERS: ATTEND Internal Medicine | DX: N28.89 Other specified disorders of kidney and ureter (principal); R33.8 Other retention of urine | CPT/HCPCS: 76770 ==

== ENCOUNTER → 2023-07-07 | Outpatient (CLI) | payer OTHER ==
[2023-07-07 12:20] LABS: BASOPHILS # (AUTO) 0.05 K/uL (0.00-0.20); BASOPHILS % (AUTO) 0.7 % (0.0-5.0); EOSINOPHILS # (AUTO) 0.36 K/uL (0.00-0.70); EOSINOPHILS % (AUTO) 4.8 % (0.0-8.0); HEMATOCRIT 30.1 % (42-54); IMMATURE GRANULOCYTE ABSOLUTE 0.02 K/uL (0-1); LYMPHOCYTES # (AUTO) 2.7 K/uL (1.0-4.8); LYMPHOCYTES % (AUTO) 36.4 % (21.0-51.0); MEAN CORPUSCULAR HEMOGLOBIN 30.8 pg (27.0-33.0); MEAN CORPUSCULAR HGB CONC 31.2 g/dL (32.0-36.0); MEAN CORPUSCULAR VOLUME 98.7 fL (79-99); MONOCYTES # (AUTO) 0.9 K/uL (0.1-1.0); MONOCYTES % (AUTO) 11.4 % (3.0-13.0); NEUTROPHILS # (AUTO) 3.5 K/uL (1.8-7.7); NEUTROPHILS % (AUTO) 46.4 % (40.0-77.0); PLATELET COUNT (AUTO) 238 K/uL (130-400); RED BLOOD CELL COUNT(AUTO) 3.05 MIL/uL (4.50-6.20); RED CELL DISTRIBUTION WIDTH 14.2 % (11.0-15.5); WHITE BLOOD COUNT (AUTO) 7.5 K/uL (4.8-10.8)
[2023-07-07 12:45] LABS: ALBUMIN 3.2 g/dL (3.5-5.0); BILIRUBIN,TOTAL 0.2 mg/dL (0.2-1.0); CREATININE 1.7 mg/dL (0.5-1.5); POTASSIUM 3.8 mmol/L (3.5-5.1); THYROID STIMULATING HORMONE 15.65 uIU/mL (0.36-3.74); TOTAL PROTEIN, SERUM 6.6 g/dL (6.0-8.3)
== END | disposition home or self-care (01) ==
LOC: LAB 10:06
PROVIDERS: ATTEND Internal Medicine Cardiovascular Disease
DX: I48.0 Paroxysmal atrial fibrillation (principal)
CPT/HCPCS: 36415; 80053; 83735; 84443; 85025

== ENCOUNTER 2024-01-05 06:35 | Day surgery (SDC) | payer OTHER, MEDICARE ==
[2024-01-02 13:44] LABS: BASOPHILS # (AUTO) 0.06 K/uL (0.00-0.20); BASOPHILS % (AUTO) 0.9 % (0.0-5.0); EOSINOPHILS # (AUTO) 0.35 K/uL (0.00-0.70); EOSINOPHILS % (AUTO) 5.1 % (0.0-8.0); IMMATURE GRANULOCYTE ABSOLUTE 0.02 K/uL (0-1); LYMPHOCYTES # (AUTO) 2.4 K/uL (1.0-4.8); LYMPHOCYTES % (AUTO) 34.4 % (21.0-51.0); MEAN CORPUSCULAR HEMOGLOBIN 32.5 pg (27.0-33.0); MEAN CORPUSCULAR HGB CONC 32.9 g/dL (32.0-36.0); MEAN CORPUSCULAR VOLUME 98.9 fL (79-99); MONOCYTES # (AUTO) 0.6 K/uL (0.1-1.0); MONOCYTES % (AUTO) 8.9 % (3.0-13.0); NEUTROPHILS # (AUTO) 3.5 K/uL (1.8-7.7); NEUTROPHILS % (AUTO) 50.4 % (40.0-77.0); PLATELET COUNT (AUTO) 204 K/uL (130-400); RED BLOOD CELL COUNT(AUTO) 3.54 MIL/uL (4.50-6.20); RED CELL DISTRIBUTION WIDTH 13.2 % (11.0-15.5); WHITE BLOOD COUNT (AUTO) 6.9 K/uL (4.8-10.8)
[2024-01-02 13:55] LABS: CREATININE 1.6 mg/dL (0.5-1.3); POTASSIUM 3.7 mmol/L (3.5-5.1)
[2024-01-02 13:57] LABS: INR 1.01 (0.85-1.15); PROTHROMBIN TIME 11.9 SEC (9.6-11.6)
[2024-01-02 14:18] VITALS: BP 149/81; PULSE 71; RESP 18
[2024-01-05] VITALS (9 sets, daily range): BP systolic 141–184; BP diastolic 61–78; PULSE 60; RESP 12–19
[~2024-01-05] VITALS: Ht 177.8 cm; Wt 81.6 kg
[~2024-01-05 06:35] MED LIST changes: -ACET-2079 PO; +ACET-2123 PO; +ACET325T51 PO; -ALBU90AE IH; -AMIO200T68 PO; +CEFAZOLIN SODIUM 1 GM VIAL IVPB PRN; -CEFD300C3 PO; +CEPH500C2 PO; +CITA-107 PO; +CLON0.1T2 PO; +DRON400T7 PO; -ESCI10TA PO; +FERR-72 PO; -FERR324T4 PO; -FLEC100T3 PO; -FLUT1BLS12 IH; +FLUTICASONE PROP IH; +FURO20TA4 PO; +GABA300C PO; -GABA300T25 PO; +HYDR-4060 PO; +HYDR10 PO; +LACT10SO9 PO; +LEVO100C4 PO; -MAGN400T53 PO; -METO100T14 PO; +METO50TA18 PO; +PANT40TA PO; -PANT40TA54 PO; -ROSU5TAB12 PO; +ROSU5TAB43 PO; +SIME PO; -VERE240SR PO; +[UNRECOGNIZED DRUG - OTHER] PO
[2024-01-05] MEDS: 0.9%NACL 1000ML 1,000 ML IV SCH (07:22)
[2024-01-05] MEDS ORDERED: CEFAZOLIN SODIUM 1 GM VIAL ONE (07:32)
[2024-01-05] MEDS ORDERED: IODIXANOL 320 MG/ML 100 ML VIAL ONE (07:32)
[2024-01-05] MEDS ORDERED: LIDOCAINE HCL 1% MDV 50ML VIAL ONE (07:32)
[2024-01-05] MEDS ORDERED: BUPIVACAINE/PF 0.25% 30ML VIAL IJ ONE (07:32)
[2024-01-05] MEDS ORDERED: MIDAZOLAM HCL 1 MG/ML 2ML VIAL ONE ×3 (08:01→08:57)
[2024-01-05] MEDS ORDERED: MEPERIDINE-PF 25 MG/ML SYG ONE ×3 (08:01→08:57)
[2024-01-05] MEDS ORDERED: BACITRACIN 1 EACH PACKET TP ONE (08:51)
[2024-01-05] MEDS ORDERED: ACETAMINOPHEN WITH CODEINE 1 TAB TAB PO PRN (09:30)
[2024-01-05] MEDS ORDERED: ACETAMINOPHEN 500 MG TABLET PO PRN (09:30)
== END 2024-01-05 12:35 | disposition home or self-care (01) ==
LOC: DAH 06:35
PROVIDERS: ATTEND Internal Medicine Cardiovascular Disease
DX: I42.0 Dilated cardiomyopathy (principal); I44.30 Unspecified atrioventricular block; I49.5 Sick sinus syndrome; I48.0 Paroxysmal atrial fibrillation; N18.9 Chronic kidney disease, unspecified; Z79.899 Other long term (current) drug therapy; Z82.49 Family history of ischemic heart disease and other diseases of the circulatory system; Z79.01 Long term (current) use of anticoagulants
CPT/HCPCS: 80048; 85025; 85610; 85730; 36415; 93005; 33229; 33225; 71045; C1769 ×2; C1900; C2621; J0690; J7030; J0665; J2250 ×3; J2175 ×3; J3490; Q9967; A4615; A4215; A4222; A4221; A4663; A4216; A4606; A4223 ×3; 99156; 99157

== ENCOUNTER 2024-02-23 19:43 | Emergency (ER) | payer OTHER, MEDICARE ==
[~2024-02-23] VITALS: Ht 177.8 cm; Wt 83.9 kg
[~2024-02-23 19:43] MED LIST changes: -CEFAZOLIN SODIUM 1 GM VIAL IVPB PRN
[2024-02-23 20:33] LABS: BASOPHILS # (AUTO) 0.04 K/uL (0.00-0.20); BASOPHILS % (AUTO) 0.6 % (0.0-5.0); EOSINOPHILS # (AUTO) 0.22 K/uL (0.00-0.70); EOSINOPHILS % (AUTO) 3.4 % (0.0-8.0); HEMATOCRIT 32.9 % (42-54); IMMATURE GRANULOCYTE ABSOLUTE 0.01 K/uL (0-1); LYMPHOCYTES # (AUTO) 2.7 K/uL (1.0-4.8); LYMPHOCYTES % (AUTO) 42.3 % (21.0-51.0); MEAN CORPUSCULAR HEMOGLOBIN 32.7 pg (27.0-33.0); MEAN CORPUSCULAR HGB CONC 34.3 g/dL (32.0-36.0); MEAN CORPUSCULAR VOLUME 95.1 fL (79-99); MONOCYTES # (AUTO) 0.7 K/uL (0.1-1.0); NEUTROPHILS # (AUTO) 2.8 K/uL (1.8-7.7); NEUTROPHILS % (AUTO) 42.5 % (40.0-77.0); PLATELET COUNT (AUTO) 184 K/uL (130-400); RED BLOOD CELL COUNT(AUTO) 3.46 MIL/uL (4.50-6.20); RED CELL DISTRIBUTION WIDTH 13.7 % (11.0-15.5); WHITE BLOOD COUNT (AUTO) 6.5 K/uL (4.8-10.8)
[2024-02-23 20:51] LABS: CREATININE 1.5 mg/dL (0.5-1.3); POTASSIUM 4.4 mmol/L (3.5-5.1)
[2024-02-23 20:55] LABS: ALBUMIN 3.2 g/dL (3.5-5.0); BILIRUBIN,TOTAL 0.3 mg/dL (0.2-1.0); TOTAL PROTEIN, SERUM 6.9 g/dL (6.0-8.3)
[2024-02-23 21:07] LABS: B-TYPE NATRIURETIC PEPTIDE 255 pg/mL (0-100)
[2024-02-23] MEDS ORDERED: FURO40TA7 PO (22:05)
[2024-02-23] MEDS ORDERED: POTA-192 PO (22:05)
[2024-02-23] MEDS: FUROSEMIDE 80 MG TABLET PO STA (22:15)
[2024-02-23 22:16] VITALS: BP 203/89; PULSE 65; RESP 15; O2SAT 99
== END 2024-02-23 22:30 | disposition home or self-care (01) ==
LOC: EDH 19:43
DX: I13.0 Hypertensive heart and chronic kidney disease with heart failure and stage 1 through stage 4 chronic kidney disease, or unspecified chronic kidney disease (principal); N18.9 Chronic kidney disease, unspecified; I50.9 Heart failure, unspecified; D63.1 Anemia in chronic kidney disease; Z88.3 Allergy status to other anti-infective agents; Z79.899 Other long term (current) drug therapy; Z98.890 Other specified postprocedural states
CPT/HCPCS: 36415; 80053; 83735; 83880; 84484; 85025; 93005

== ENCOUNTER 2024-08-03 05:55 | Day surgery (SDC) | payer MEDICARE ==
--- NOTE | 2024-07-30 09:39 | EKG ---
[facility] Test Date: 2024-07-30 Test Time: 10:17:43 Pat Name: LORNA MCHUGH Department: [facility] Room: Gender: M Resident Care Manager Rn: [id number] : 1940 Requested By: MAYDA EAGLE Order Number: [id number] Reading MD: Amando Mendez Measurements Intervals [place] Rate: 122 P: 0 IN: 0 QRS: -51 QRSD: 104 T: -82 QT: 368 QTc: 525 Interpretive Statements Atrial fibrillation LAD, consider left anterior fascicular block Nonspecific repol abnormality, diffuse leads Prolonged QT interval Compared to ECG 02/23/2024 20:56:01 Early repolarization now present Prolonged QT interval now present Ventricular-paced complex(es) or rhythm no longer present Electronically Signed On 07-30-2024 14:09:28 MOLASSES PREPARER by Amando Mendez Please click the below link to view image of tracing.
[2024-07-30 09:42] LABS: BASOPHILS # (AUTO) 0.04 K/uL (0.00-0.20); BASOPHILS % (AUTO) 0.5 % (0.0-5.0); EOSINOPHILS # (AUTO) 0.09 K/uL (0.00-0.70); EOSINOPHILS % (AUTO) 1.1 % (0.0-8.0); HEMATOCRIT 32.8 % (42-54); IMMATURE GRANULOCYTE ABSOLUTE 0.04 K/uL (0-1); LYMPHOCYTES # (AUTO) 2.3 K/uL (1.0-4.8); LYMPHOCYTES % (AUTO) 27.4 % (21.0-51.0); MEAN CORPUSCULAR HEMOGLOBIN 35.2 pg (27.0-33.0); MEAN CORPUSCULAR HGB CONC 33.8 g/dL (32.0-36.0); MEAN CORPUSCULAR VOLUME 104.1 fL (79-99); MONOCYTES % (AUTO) 11.8 % (3.0-13.0); NEUTROPHILS # (AUTO) 4.8 K/uL (1.8-7.7); NEUTROPHILS % (AUTO) 58.7 % (40.0-77.0); PLATELET COUNT (AUTO) 196 K/uL (130-400); RED BLOOD CELL COUNT(AUTO) 3.15 MIL/uL (4.50-6.20); RED CELL DISTRIBUTION WIDTH 13.1 % (11.0-15.5); WHITE BLOOD COUNT (AUTO) 8.2 K/uL (4.8-10.8)
[2024-07-30 09:50] LABS: CREATININE 1.3 mg/dL (0.5-1.3); POTASSIUM 3.4 mmol/L (3.5-5.1)
[2024-07-30 09:56] LABS: INR 1.1 (0.85-1.15); PROTHROMBIN TIME 12.2 SEC (9.6-11.6)
[2024-07-30 09:57] LABS: PARTIAL THROMBOPLASTIN TIME 33.3 SEC (26.3-35.5)
[2024-07-30 10:05] VITALS: BP 158/81; PULSE 113; RESP 18; TEMP 96.6
--- NOTE | 2024-07-30 14:19 | NUR ---
report informed rafal evans pt on multaq and metoprolol, heart rate. ok for pt to continue medications just hold eliquis morning of procedure.
--- NOTE | 2024-08-02 12:22 | NUR ---
report reported potassium level to dr katz/vj garcia rn. no new orders given at this time
[2024-08-03] VITALS (10 sets, daily range): BP systolic 169–188; BP diastolic 83–108; PULSE 81–108; RESP 16–21; TEMP 97–97.6
[~2024-08-03] VITALS: Ht 177.8 cm; Wt 98.9 kg
[~2024-08-03 05:55] MED LIST changes: -ACET325T51 PO; -ALBU2.5V2 IH; +APIX2.5T PO; -FAMO20TA8 PO; -FLUTICASONE PROP IH; +GUAI120L62 PO; -HYDR10 PO; -PANT40TA PO; -ROSU5TAB43 PO; +ROSU5TAB51 PO; -SIME PO; -[UNRECOGNIZED DRUG - OTHER] PO
[2024-08-03] MEDS: 0.9%NACL 1000ML 1,000 ML IV SCH (06:48)
[2024-08-03] MEDS ORDERED: MIDAZOLAM HCL 1 MG/ML 2ML VIAL ONE (07:21)
[2024-08-03] MEDS ORDERED: HEParin-NS 1,000 UNIT/500 ML 1,000 ML IV ONE (07:21)
[2024-08-03] MEDS ORDERED: LIDOCAINE HCL 1% MDV 50ML VIAL ONE (07:21)
[2024-08-03] MEDS ORDERED: MEPERIDINE-PF 25 MG/ML SYG ONE (07:21)
[2024-08-03] MEDS ORDERED: ISOPROTERENOL HCL 0.2 MG/ML AMP/VIAL/BAG ONE (08:32)
[2024-08-03] MEDS ORDERED: hydrALAZine 20MG/ML VIAL ONE (08:47)
[2024-08-03] MEDS ORDERED: METO-391 PO (09:12)
[2024-08-03] MEDS ORDERED: AMLO-257 PO (09:12)
[2024-08-03] MEDS: amLODIPine 5 MG TAB PO ONE (09:38)
--- NOTE | 2024-08-03 09:39 | EKG ---
[facility] Test Date: 2024-08-03 Test Time: 10:30:40 Pat Name: LORNA MCHUGH Department: [facility] Room: [facility] Gender: M Director Of Student Financial Aid: [id number] : 1940 Requested By: MAYDA EAGLE Order Number: [id number] Reading MD: Murtaza Coburn Measurements Intervals [place] Rate: 120 P: 0 WI: 0 QRS: 8 QRSD: 266 T: 0 QT: 0 QTc: 0 Interpretive Statements Ventricular-paced complexes Nonspecific intraventricular conduction delay Compared to ECG 07/30/2024 10:17:43 Intraventricular conduction delay now present Atrial fibrillation no longer present Early repolarization no longer present Prolonged QT interval no longer present Electronically Signed On 08-03-2024 15:47:37 CURB WORKER by Murtaza Coburn Please click the below link to view image of tracing.
--- NOTE | 2024-08-03 11:01 | NUR ---
urinary: voided 250cc clear yellow color urine per urinal.
== END 2024-08-03 11:30 | disposition home or self-care (01) ==
LOC: DAH 05:55
PROVIDERS: ATTEND Internal Medicine Cardiovascular Disease
DX: I48.21 Permanent atrial fibrillation (principal); I42.8 Other cardiomyopathies; Z95.0 Presence of cardiac pacemaker; I11.0 Hypertensive heart disease with heart failure; I50.22 Chronic systolic (congestive) heart failure; Z88.8 Allergy status to other drugs, medicaments and biological substances; Z79.01 Long term (current) use of anticoagulants; Z98.890 Other specified postprocedural states; Z79.899 Other long term (current) drug therapy
CPT/HCPCS: 80048; 85025; 85610; 85730; 36415; 93005 ×2; 93620; 93623; 93650; C1894; A4649 ×2; C1732; C1760; J7030; J3490 ×2; J0360; J2250; J2175; J1644; A4215; A4222; A4221; A4663; A4216; A4606; A4223 ×3; 99156; 99157

== ENCOUNTER → 2025-05-09 | Outpatient (CLI) | payer OTHER ==
[~2025-05-09] MED LIST changes: +AMLO-257 PO; -DRON400T7 PO; -LEVO100C4 PO; +LEVO100C5 PO; +METO-391 PO; -METO50TA18 PO; -TAMS-1 PO; +TAMS-55 PO
--- NOTE | 2025-05-09 10:54 | HMCIMG ---
EXAM: CR Chest, 2 View. CLINICAL HISTORY: Acute Bronchitis COMPARISON: None provided. FINDINGS: LUNGS: The lungs show no infiltrate or other acute finding. PLEURAL SPACES: No pleural effusion or pneumothorax. MEDIASTINUM: The cardiomediastinal silhouette is within normal limits. 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 MISCELLANEOUS: Left-sided pacemaker. IMPRESSION: 1. No acute cardiopulmonary findings. 2. 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 3. Left-sided pacemaker. /[place]
== END | disposition home or self-care (01) ==
LOC: RAH 10:09
PROVIDERS: ATTEND Family Medicine
DX: J20.9 Acute bronchitis, unspecified (principal); M19.011 Primary osteoarthritis, right shoulder; Z95.0 Presence of cardiac pacemaker
CPT/HCPCS: 71046